=== PATIENT | female | born 1950 | race African-American/Black ===

== ENCOUNTER 2016-12-15 20:03 | Emergency (ER) | payer MEDICARE ==
[~2016-12-15] VITALS: Ht 162.6 cm; Wt 120.2 kg
[2016-12-15 20:50] VITALS: BP 198/119
--- NOTE | 2016-12-15 21:13 | Emergency Room Report ---
History of Present Illness General Chief Complaint: Hypertension Source: Patient Present Illness HPI 66YO F walk-in with right sided neck pain, dizziness. Came to ED for dizziness. Not assoc with chest pain, SOB, abd pain, fever/chills, urinary complaints. While in ED, felt sharp pounding right sided neck pain radiating to right side of head. No assoc nausea/vomiting, blurry or change of vision. History of HTN - took her meds today. No history of headaches, migraines, sick contacts, neck stiffness, heavy lifting. Allergies: Coded Allergies: SULFA (SULFONAMIDE ANTIBIOTICS) (Verified Allergy, Unknown, 12/15/16) Patient History Past Medical History: DM, HTN, other - HLD Past Surgical History: none Pertinent Family History: none Social History: Denies: alcohol use, drug use, smoking Last Menstrual Period: NONE Now: No Immunizations: UTD Reviewed Nursing Documentation: PMH: Agreed, PSxH: Agreed Nursing Documentation-PMH Hx Hypertension: Yes Hx Diabetes: Yes Review of Systems All Other Systems: negative except mentioned in HPI Physical Exam Vital Signs Date Time Temp Pulse Resp B/P Pulse Ox O2 Delivery O2 Flow Rate FiO2 12/15/16 20:45 98.2 65 18 198/119 95 Room Air Sp02 EP Interpretation: reviewed, abnormal General Appearance: normal inspection, well appearing, no apparent distress, alert, GCS 15, non-toxic, other - Writhing on stretcher, c/o headache Head: normocephalic, atraumatic Eyes: bilateral eye EOMI, bilateral eye PERRL ENT: normal ENT inspection, hearing grossly normal, normal voice Neck: normal inspection, full range of motion, supple, no bony tend Respiratory: normal inspection, lungs clear, normal breath sounds, no respiratory distress, no retraction, no wheezing Cardiovascular #1: regular rate, rhythm, no edema Gastrointestinal: normal inspection, normal bowel sounds, non tender, soft, no guarding, no hernia Genitourinary: no CVA tenderness Musculoskeletal: normal inspection, back normal, normal range of motion, Brenden' s Sign negative Neurologic: normal inspection, alert, oriented x3, responsive, glass maker III-XII nml as tested, motor strength/tone normal, speech normal Psychiatric: normal inspection, judgement/insight normal, mood/affect normal Skin: normal inspection, normal color, no rash Lymphatic: normal inspection Medical Decision Making Diagnostic Impression: Primary Impression: Headache Qualified Codes: G44.209 - Tension-type headache, unspecified, not intractable Additional Impressions: Dizziness HTN (hypertension) Qualified Codes: I10 - Essential (primary) hypertension ER Course Elevated BP - likely d/t pain - BP down to 185/100 after analgesia for headache, which resolved - CT head negative for SAH. Low suspicion for SAH, meningitis given well appearance, no focal neuro deficits, quick reduction in pain after analgesia - No additional HTN meds given in ED Dizziness: - ECG is NSR. No ischemia. Troponin 0. - Ambulating with steady gait, unlikely posterior CVA. - Rest of labs normal. H&H stable. No leuks - Unlikely infectious cause of dizziness Likely tension headache vs complicated migraine. DC home with PMD followup EKG Diagnostic Results Rate: normal Rhythm: NSR ST Segments: no acute changes Rhythm Strip Diag. Results EP Interpretation: yes Rate: 82 Rhythm: no PVC's, no ectopy Chest X-Ray Diagnostic Results EP Interpretation: Yes Findings: no consolidation, no effusion, no pneumothorax Number of Views: 1 Last Vital Signs Date Time Temp Pulse Resp B/P Pulse Ox O2 Delivery O2 Flow Rate FiO2 12/15/16 20:45 98.2 65 18 198/119 95 Room Air Status: improved Disposition: HOME, SELF-CARE ELIANA KIM M.D. December 15, 2016 21:13
[2016-12-15] MEDS ORDERED: Oxycodone/Acetaminophen 5-325 ORAL ONE (21:15)
[2016-12-15 21:56] LABS: BASOPHILS % (AUTO) 1.3 % (0.0-2.0); EOSINOPHILS % (AUTO) 1.5 % (0.0-3.0); LYMPHOCYTES % (AUTO) 21.1 % (20.0-45.0); MEAN CORPUSCULAR HGB CONC 33.4 G/DL (32.0-36.0); MEAN CORPUSCULAR VOLUME 90 FL (80-99); MONOCYTES % (AUTO) 7.1 % (1.0-10.0); PLATELET COUNT 291 K/UL (150-450); RED BLOOD COUNT 4.62 M/UL (4.20-5.40); WHITE BLOOD COUNT 8.6 K/UL (4.8-10.8)
[2016-12-15 22:21] LABS: TROPONIN I < 0.30 ng/mL (<=0.30)
[2016-12-15 22:24] LABS: ALANINE AMINOTRANSFERASE 12 U/L (3-33); ALBUMIN/GLOBULIN RATIO 1.5 (1.0-2.7); ANION GAP 18 (5-15); ASPARTATE AMINO TRANSFERASE 18 U/L (5-40); CALCIUM 9.7 mg/dL (8.6-10.2); CARBON DIOXIDE 23 mEQ/L (20-30); CHLORIDE 100 mEQ/L (98-107); CREATININE 0.7 mg/dL (0.5-0.9); GLOMERULAR FILTRATION RATE > 60 mL/min (>60); HEMOLYSIS 2; POTASSIUM 3.8 mEQ/L (3.4-4.9); SODIUM 141 mEQ/L (135-145); TOTAL PROTEIN 7.2 g/dL (6.6-8.7)
[2016-12-15 22:30] LABS: CKMB 2.1 ng/mL (< 3.8)
[2016-12-15 22:50] VITALS: BP 185/100
[2016-12-15 23:10] VITALS: BP 170/89
--- NOTE | 2016-12-16 09:53 | Diagnostic Imaging Report ---
Indication: Headache Technique: Contiguous 5 mm thick transaxial imaging of the head obtained in a Siemens Sensation [address] scanner. Soft tissue and bone windows generated. Total Dose length Product (DLP): [address] Dose Index Volume (CTDIvol): 70.38 mGy Comparison: none Findings: Mild, nonspecific, white matter hypoattenuation is noted throughout the brain consistent with chronic small vessel disease. There is no midline shift, edema, acute hemorrhage, mass effect, or abnormal extra-axial fluid collections. Bones and extra osseous soft tissues are unremarkable. Impression: No acute intracranial bleed, mass effect or edema. Nonspecific white matter hypoattenuation probably due to chronic small vessel disease. The CT scanner at [facility] is accredited by the [employer] and the scans are performed using dose optimization techniques as appropriate to a performed exam including Automatic Exposure control.
--- NOTE | 2016-12-16 12:04 | Diagnostic Imaging Report ---
Indication: Chest Pain Comparison: None A single view chest radiograph was obtained. Findings: No definite infiltrate or pulmonary vascular congestion identified. The heart is enlarged. The aorta is mildly enlarged consistent with atherosclerotic vascular disease. The bones are osteopenic. Impression: No acute disease
--- NOTE | 2016-12-18 14:49 | Cardiology Report ---
APPROVED REPORT EKG Measurement Heart [id number] Normal sinus rhythm Normal ECG
== END 2016-12-15 23:10 | disposition home or self-care (01) ==
LOC: EDBD 20:03 → EMR 21:02
DX: R51 Headache (principal); R42 Dizziness and giddiness; I10 Essential (primary) hypertension; M54.2 Cervicalgia; Z88.2 Allergy status to sulfonamides; E11.9 Type 2 diabetes mellitus without complications; E78.5 Hyperlipidemia, unspecified
CPT/HCPCS: 36415; 70450; 71010; 80053; 80300; 82550; 82553; 84484; 85025; 93005; 99283